=== PATIENT | female | born 1970 | race Caucasian/White ===

== ENCOUNTER 2019-02-03 18:59 | Inpatient (IN) | payer MEDICAID ==
[~2019-02-03] VITALS: Ht 177.8 cm; Wt 78.5 kg
[2019-02-03] MEDS ORDERED: VENL50TA44 PO (19:23)
[2019-02-03] MEDS ORDERED: LAMO25 PO (19:23)
[2019-02-03] MEDS ORDERED: LIB10 PO (19:23)
[2019-02-03] MEDS ORDERED: QUET25TA PO (19:23)
[2019-02-03] MEDS ORDERED: ONDA4 PO (19:23)
[2019-02-03 19:57] LABS: BASOPHILS % (AUTO) 0.3 % (0.0-2.0); EOSINOPHILS % (AUTO) 0 % (1.0-6.0); HEMATOCRIT 43.6 % (36-46); HEMOGLOBIN 14.7 g/dL (12.0-16.0); LYMPHOCYTES # (AUTO) 0.6 K/uL (1.0-4.8); LYMPHOCYTES % (AUTO) 7.1 % (22.0-44.0); MEAN CORPUSCULAR HEMOGLOBIN 36.3 pg (26.0-34.0); MEAN CORPUSCULAR HGB CONC 33.6 G/dL (31.0-37.0); MEAN CORPUSCULAR VOLUME 108 fL (80-100); MONOCYTES # (AUTO) 0.7 K/uL (0.1-1.0); MONOCYTES % (AUTO) 7.7 % (2.0-9.0); NEUTROPHILS # (AUTO) 7.4 K/uL (1.8-7.7); NEUTROPHILS % (AUTO) 84.9 % (40.0-70.0); PLATELET COUNT (AUTO) 159 K/uL (150-450); RED BLOOD CELL COUNT(AUTO) 4.05 MIL/uL (4.00-5.20); RED CELL DISTRIBUTION WIDTH 15.5 % (11.5-14.5)
[2019-02-03 20:16] LABS: ANION GAP 23 mmol/L (8-16); CALCIUM, TOTAL 9.5 mg/dL (8.8-10.5); CARBON DIOXIDE 20 mmol/L (22-29); CHLORIDE 90 mmol/L (98-107); CREATININE 0.82 mg/dL (0.60-1.30); GLOMERULAR FILTR. RATE CALC > 60 mL/min (>60); GLUCOSE,RANDOM 158 mg/dL (70-110); POTASSIUM 4.4 mmol/L (3.5-5.1); SODIUM SERUM 133 mmol/L (136-145); UREA NITROGEN, BLOOD 12 mg/dL (7-18)
[2019-02-03 20:22] LABS: ALANINE AMINOTRANSFERASE 114 U/L (12-78); ALBUMIN 4.9 g/dL (3.4-5.0); ALKALINE PHOSPHATASE 112 U/L (46-116); ASPARTATE AMINOTRANSFERASE 150 U/L (15-37); BILIRUBIN,TOTAL 1.2 mg/dL (0.1-1.0)
[2019-02-03 21:15] LABS: AMPHET/METH SCREEN,URINE NEGATIVE (NEGATIVE); BARBITURATE SCREEN, URINE NEGATIVE (NEGATIVE); BENZODIAZEPINES SCREEN,URINE POSITIVE (NEGATIVE); CANNABINOID SCREEN,URINE NEGATIVE (NEGATIVE); COCAINE SCREEN,URINE NEGATIVE (NEGATIVE); METHADONE SCREEN, URINE NEGATIVE (NEGATIVE); OPIATE SCREEN,URINE NEGATIVE (NEGATIVE)
[2019-02-03 21:16] LABS: PHENCYCLIDINE SCREEN,URINE NEGATIVE (NEGATIVE)
[2019-02-03] MEDS ORDERED: MAGNESIUM SULFATE 2 GM, MVI, ADULT NO.1 WITH VIT K 10 ML, THIAMINE HCL 100 MG, FOLIC AC... IV ONE ×5 (21:45)
[2019-02-03] MEDS ORDERED: SODIUM CHLORIDE 0.9% 1,000 ML IV ONE (21:45)
[2019-02-03] MEDS ORDERED: ONDANSETRON HCL 4 MG/2 ML VIAL IVP ONE (21:45)
[2019-02-03] MEDS ORDERED: LORazepam 2 MG/ML VIAL IVP ONE (23:00)
[2019-02-04] VITALS (7 sets, daily range): BP systolic 148–164; BP diastolic 85–131
[2019-02-04] MEDS ORDERED: ONDANSETRON HCL 4 MG/2 ML VIAL IVP PRN ×2 (01:45→03:00)
[2019-02-04] MEDS ORDERED: ACETAMINOPHEN 325 MG TABLET PO PRN ×2 (01:45→03:00)
[2019-02-04] MEDS ORDERED: 0.9% SODIUM CHLORIDE 10 ML SYRINGE IVP PRN ×2 (01:45→03:00)
[2019-02-04] MEDS ORDERED: LORazepam 2 MG TABLET PO PRN ×2 (01:45→21:30)
[2019-02-04] MEDS ORDERED: ChlordiazePOXIDE HCL 25 MG CAPSULE PO PRN (03:00)
[2019-02-04] MEDS ORDERED: MAGNESIUM HYDROXIDE SUSPENSION 30 ML UDCUP PO PRN (03:00)
[2019-02-04] MEDS ORDERED: OxyCODONE HCL/ACETAMINOPHEN 5-325 MG TABLET PO PRN ×2 (03:00)
[2019-02-04] MEDS: DOCUSATE SODIUM 100 MG CAPSULE PO SCH ×2 (08:44→21:02)
[2019-02-04] MEDS: FAMOTIDINE 10 MG/ML 2 ML VIAL IVP SCH (08:44)
[2019-02-04] MEDS: VENLAFAXINE HCL 50 MG TABLET PO SCH (08:44)
[2019-02-04] MEDS ORDERED: QUEtiapine FUMARATE 25 MG TABLET PO SCH (09:00)
[2019-02-04] MEDS ORDERED: LORazepam 2 MG/ML VIAL IVP PRN (12:30)
[2019-02-04] MEDS: MULTIVITAMINS WITH MINERALS, THERAPEUTIC TABLET PO SCH (13:45)
[2019-02-04] MEDS: ChlordiazePOXIDE HCL 10 MG CAPSULE PO SCH (16:09)
[2019-02-04] MEDS: QUEtiapine FUMARATE 25 MG TABLET PO SCH (21:02)
[2019-02-04] MEDS: CARVEDILOL 6.25 MG TABLET PO SCH (21:30)
[2019-02-05] VITALS (7 sets, daily range): BP systolic 121–153; BP diastolic 80–96
[2019-02-05] MEDS: ChlordiazePOXIDE HCL 10 MG CAPSULE PO SCH ×4 (00:27→23:51)
[2019-02-05 06:35] LABS: BASOPHILS % (AUTO) 0.2 % (0.0-2.0); HEMATOCRIT 39.9 % (36-46); HEMOGLOBIN 13.6 g/dL (12.0-16.0); LYMPHOCYTES # (AUTO) 0.8 K/uL (1.0-4.8); LYMPHOCYTES % (AUTO) 14.8 % (22.0-44.0); MEAN CORPUSCULAR HGB CONC 34.1 G/dL (31.0-37.0); MEAN CORPUSCULAR VOLUME 108 fL (80-100); MONOCYTES # (AUTO) 0.6 K/uL (0.1-1.0); NEUTROPHILS # (AUTO) 3.7 K/uL (1.8-7.7); PLATELET COUNT (AUTO) 119 K/uL (150-450); RED BLOOD CELL COUNT(AUTO) 3.68 MIL/uL (4.00-5.20); RED CELL DISTRIBUTION WIDTH 15.2 % (11.5-14.5)
[2019-02-05 06:43] LABS: HEMOGLOBIN A1C 5.6 % (4.5-6.2)
[2019-02-05] MEDS ORDERED: ChlordiazePOXIDE HCL 25 MG CAPSULE PO PRN (07:00)
[2019-02-05] MEDS ORDERED: LORazepam 2 MG TABLET PO PRN (07:00)
[2019-02-05 07:03] LABS: ALANINE AMINOTRANSFERASE 95 U/L (12-78); ALBUMIN 3.8 g/dL (3.4-5.0); ALKALINE PHOSPHATASE 90 U/L (46-116); ANION GAP 10 mmol/L (8-16); ASPARTATE AMINOTRANSFERASE 103 U/L (15-37); BILIRUBIN,TOTAL 0.7 mg/dL (0.1-1.0); CALCIUM, TOTAL 10.3 mg/dL (8.8-10.5); CARBON DIOXIDE 24 mmol/L (22-29); CHLORIDE 99 mmol/L (98-107); CREATININE 0.66 mg/dL (0.60-1.30); GLOMERULAR FILTR. RATE CALC > 60 mL/min (>60); GLUCOSE,RANDOM 172 mg/dL (70-110); POTASSIUM 3.2 mmol/L (3.5-5.1); SODIUM SERUM 133 mmol/L (136-145); UREA NITROGEN, BLOOD 13 mg/dL (7-18)
[2019-02-05] MEDS: THIAMINE HCL 100 MG TABLET PO SCH (07:56)
[2019-02-05] MEDS: DOCUSATE SODIUM 100 MG CAPSULE PO SCH ×2 (07:56→20:02)
[2019-02-05] MEDS: VENLAFAXINE HCL 50 MG TABLET PO SCH (07:56)
[2019-02-05] MEDS: CARVEDILOL 6.25 MG TABLET PO SCH ×2 (07:57→20:02)
[2019-02-05] MEDS: MULTIVITAMINS WITH MINERALS, THERAPEUTIC TABLET PO SCH (07:58)
[2019-02-05] MEDS: FOLIC ACID 1 MG TABLET PO SCH (07:58)
[2019-02-05] MEDS: FAMOTIDINE 10 MG/ML 2 ML VIAL IVP SCH (07:59)
[2019-02-05] MEDS ORDERED: ChlordiazePOXIDE HCL 25 MG CAPSULE PO SCH (09:00)
[2019-02-05] MEDS ORDERED: LORazepam 2 MG TABLET PO SCH (09:00)
[2019-02-05] MEDS ORDERED: POTASSIUM CHL 10 MEQ/WATER 50 ML IV PRN (10:00)
[2019-02-05] MEDS ORDERED: POTASSIUM CHLORIDE 20 MEQ ER TABLET PO PRN (10:00)
[2019-02-05] MEDS: QUEtiapine FUMARATE 25 MG TABLET PO SCH (20:03)
[2019-02-06 04:53] VITALS: BP 128/89
[2019-02-06 07:40] VITALS: BP 132/79
[2019-02-06] MEDS: MULTIVITAMINS WITH MINERALS, THERAPEUTIC TABLET PO SCH (08:29)
[2019-02-06] MEDS: FOLIC ACID 1 MG TABLET PO SCH (08:30)
[2019-02-06] MEDS: ChlordiazePOXIDE HCL 10 MG CAPSULE PO SCH (08:30)
[2019-02-06] MEDS: THIAMINE HCL 100 MG TABLET PO SCH (08:31)
[2019-02-06] MEDS: CARVEDILOL 6.25 MG TABLET PO SCH (08:31)
[2019-02-06] MEDS: VENLAFAXINE HCL 50 MG TABLET PO SCH (08:31)
[2019-02-06] MEDS: DOCUSATE SODIUM 100 MG CAPSULE PO SCH (08:31)
[2019-02-06] MEDS: FAMOTIDINE 10 MG/ML 2 ML VIAL IVP SCH (08:32)
[2019-02-06 11:13] VITALS: BP 140/89
[2019-02-06] MEDS ORDERED: LamoTRIgine 100 MG TABLET PO SCH (21:00)
[2019-02-07] MEDS ORDERED: LORazepam 1 MG TABLET PO PRN (07:00)
[2019-02-07] MEDS ORDERED: ChlordiazePOXIDE HCL 10 MG CAPSULE PO PRN (07:00)
[2019-02-07] MEDS ORDERED: LORazepam 1 MG TABLET PO SCH (09:00)
[2019-02-07] MEDS ORDERED: ChlordiazePOXIDE HCL 10 MG CAPSULE PO SCH (09:00)
[2019-02-08] MEDS ORDERED: ChlordiazePOXIDE HCL 10 MG CAPSULE PO PRN (07:00)
[2019-02-08] MEDS ORDERED: LORazepam 1 MG TABLET PO PRN (07:00)
== END 2019-02-06 14:30 | disposition home or self-care (01) | DRG 280 ==
LOC: EMS 18:59 → 5S 02-04 00:30
PROVIDERS: ADMIT Internal Medicine; ATTEND Internal Medicine
DX: K70.10 Alcoholic hepatitis without ascites (principal); E87.1 Hypo-osmolality and hyponatremia; F10.239 Alcohol dependence with withdrawal, unspecified; F31.9 Bipolar disorder, unspecified; E87.6 Hypokalemia; F12.90 Cannabis use, unspecified, uncomplicated; F17.210 Nicotine dependence, cigarettes, uncomplicated; F41.9 Anxiety disorder, unspecified
CPT/HCPCS: 83036; 83735; 84132; 99406; G0480; J2060; J2405; J3411; J3475; J3490; J7030